=== PATIENT | female | born 1980 | race Caucasian/White ===

== ENCOUNTER → 2018-06-16 14:43 | Outpatient (CLI) | payer OTHER, SELFPAY ==
--- NOTE | 2018-06-16 | DI.US.S_ITS ---
LIMITED ULTRASOUND OF LEFT BREAST: 06/16/2018 CLINICAL: Palpable left breast lump. [facility] of the left breast 12 o'clock region was performed on the area of interest. IMPRESSION: PROBABLY BENIGN There is no abnormality seen in the left breast to correspond with the palpable abnormality and mammography finding at 12 o'clock, however, clinical followup is recommended. A follow-up mammogram in 6 months is also recommended to demonstrate stability. This exam was interpreted at Station ID: [id number]. Electronically Signed By: Mynor Agrawal M.D. ddp/:06/16/2018 17:13:32 letter sent: Followup Recommended Ultrasound BI-RADS: 3 Probably benign
--- NOTE | 2018-06-16 14:46 | DI.MG.S_ITS ---
BILATERAL DIGITAL DIAGNOSTIC MAMMOGRAM 3D/2D: 06/16/2018 CLINICAL: Palpable left breast lump. Baseline exam. No prior exams were available for comparison. The tissue of both breasts is heterogeneously dense. This may lower the sensitivity of mammography. There is an oval equal density asymmetry with an indistinct margin in the left breast at 12 o'clock anterior depth. This correlates as palpated. No other significant masses, calcifications, or other findings are seen in either breast. IMPRESSION: INCOMPLETE: NEEDS ADDITIONAL IMAGING EVALUATION The oval equal density asymmetry in the left breast is indeterminate. An ultrasound is recommended. This exam was interpreted at Station ID: [id number]. NOTE: For mammograms, a report in lay terms will be sent to the patient. Approximately 15% of breast malignancies will not be visualized mammographically. In the management of a palpable breast mass, a negative mammogram must not discourage biopsy of a clinically suspicious lesion. Electronically Signed By: Mynor martinez/reggie:06/16/2018 15:42:13 letter sent: Need Ultrasound ACR BI-RADS Category 0: Incomplete [id number]
== END ==
PROVIDERS: Visit Provider Nurse Practitioner Family
DX: R92.8 Other abnormal and inconclusive findings on diagnostic imaging of breast (principal); N64.89 Other specified disorders of breast
CPT/HCPCS: 76642; 77066; G0279